=== PATIENT | female | born 1995 | race Caucasian/White ===

== ENCOUNTER 2020-12-04 15:55 | Emergency (ER) | payer OTHER ==
[2020-12-04 16:05] VITALS: BP 120/74; PULSE 95; RESP 18; TEMP 98.4
--- NOTE | 2020-12-04 16:55 | XR ---
EXAMINATION TYPE: XR forearm bilateral DATE OF EXAM: 12/04/2020 COMPARISON: NONE HISTORY: Foreign body. Abscess. TECHNIQUE: 4 views FINDINGS: There is soft tissue deformity of the forearm with irregular surface skin over the forearm. I see no evidence of radiopaque foreign body. Radius and ulna appear intact. Elbow joint and wrist j oint appear intact. IMPRESSION: Soft tissue deformities. No foreign body seen. No fracture.
[2020-12-04] MEDS ORDERED: CEPHALEXIN 500 MG CAP PO STA (17:16)
[2020-12-04] MEDS ORDERED: CEPHALEXIN 500MG STARTER PACK 4 CAP BTL PO STA (17:16)
--- NOTE | 2020-12-04 17:22 | ED ---
Skin/Abscess/FB HPI - General Chief complaint: Skin/Abscess/Foreign Body Stated complaint: multiple abscesses Source: patient Mode of arrival: ambulatory Limitations: no limitations - History of Present Illness Initial comments: Patient is a 25-year-old female with past medical history of IV opiate abuse, forearm abscesses and endocarditis who presents to the emergency room and from [place]. She states that she was attempting to herself in today for a five-day rehab stay. The intake nurse noted the defects to her dorsal forearms and was concerned for active infection. The patient states that she has had previous forearm abscesses however she was on antibiotics and her wounds improved. She states she has not had any notice of active infection. No opening of the skin or drainage. She denies that they are warm to the touch. States that she continues to use heroin however denies any retained foreign bodies. No fevers or chills. Denies any chest pain or shortness of breath. Patient did not want come to the emergency department however she states that [place] made her get clearance. No concern for . No other alleviating, precipitating or coughing factors - Related Data Previous Rx's Medication Instructions Recorded Cephalexin [Keflex] 500 mg PO Q6HR #24 cap 12/04/20 Allergies Allergy/AdvReac Type Severity Reaction Status Date / Time No Known Allergies Allergy Verified 12/04/20 16:05 Review of Systems ROS Statement: Those systems with pertinent positive or pertinent negative responses have been documented in the HPI. ROS Other: All systems not noted in ROS Statement are negative. Past Medical History Additional Past Medical History / Comment(s): endocarditis. History of Any Multi-Drug Resistant Organisms: None Reported Past Surgical History: No Surgical Hx Reported Past Psychological History: No Psychological Hx Reported Smoking Status: Current every day smoker Past Alcohol Use History: None Reported Past Drug Use History: Heroin General Exam Limitations: no limitations Course Vital Signs 12/04/20 15:58 Temperature 98.4 F Pulse Rate 95 Respiratory 18 Rate Blood Pressure 120/74 O2 Sat by Pulse 95 Oximetry Medical Decision Making - Medical Decision Making Upon arrival patient is placed into room 2. A thorough history and physical exam is performed. Evaluation of the patient's forearms shows chronic defects with brawny edema. No signs of active infection. I did request a x-ray of her bilateral forearms to evaluate for retained foreign body. She does agree to this. X-ray is negative. Patient was given a dose of Keflex in the emergency department. Did inform her that I could place her on Keflex for a few days if there is any concern. Patient did agree to this. We did call and discuss with [place] that the patient has clearance to return. If the patient does develop any fevers, chills, pustular drainage, increased redness or warmth she should return to the emergency room. Patient agreed to this and she is discharged in stable condition Disposition Clinical Impression: IV drug abuse, Skin abnormalities Disposition: HOME SELF-CARE Condition: Stable Instructions (If sedation given, give patient instructions): Opioid Use Disorder (ED) Additional Instructions: You do not appear to have an active infection at this time. I will place you on antibiotics while you are at rehab due to their concern. Return to the emergency department should you have increased redness, swelling or pustular drainage. Prescriptions: Cephalexin [Keflex] 500 mg PO Q6HR #24 cap Is patient prescribed a controlled substance at d/c from ED?: No Referrals: None,Stated [Primary Care Provider] - 1-2 days Time of Disposition: 17:22
== END 2020-12-04 17:30 | disposition home or self-care (01) ==
LOC: EC 15:55
DX: L98.9 Disorder of the skin and subcutaneous tissue, unspecified (principal); F17.200 Nicotine dependence, unspecified, uncomplicated; F19.10 Other psychoactive substance abuse, uncomplicated
CPT/HCPCS: 99283